=== PATIENT | male | born 1985 | race Caucasian/White ===

== ENCOUNTER 2017-02-17 23:30 | Inpatient (IN) | payer BC, OTHER ==
[~2017-02-17] VITALS: Ht 177.8 cm; Wt 72.6 kg
--- NOTE | 2017-02-17 23:15 | NUR ---
Pre-admission assessment Patient is a 31-year old, male, seen at intake, AAOx4, no SOB and with slight anxiety noted at this time. Discussed with patient admission policies of the unit. Patient is coherent and able to respond to questions appropriately. Patient verbalized the he left [facility] on 02/16/2017 and relapsed immediately on the same day. Pt is ambulatory with steady gait. Pt reports that he left [facility] on 02/16/2017 and that for the past 2 days, patient has been using these substances: 1) Heroin 3 gms daily via oral inhalation. 2) Xanax 6 mg PO. Intermittent binging. 3) Methamphetamine 0.5 gm via snort. Patient denies using other substances besides the one mentioned. Vital signs taken and as follows: JB=358/92, P=84, O2 sat on RA=99%, RR=20, T=98.3 Pt verbalized instructions and teachings regarding disposal of narcotic and other controlled home meds, unit protocols such as taking of vital signs Q4H and handling and disposal of contraband.
[2017-02-18] MEDS ORDERED: LORAZEPAM 2 MG/1 ML VIAL IM PRN
[2017-02-18] MEDS ORDERED: ONDANSETRON 4 MG/2 ML VIAL IM PRN
[2017-02-18] MEDS ORDERED: LOPERAMIDE HCL 2 MG CAPSULE PO PRN ×2
[2017-02-18] MEDS ORDERED: ACETAMINOPHEN 325 MG TABLET PO PRN
[2017-02-18] MEDS ORDERED: MAG HYDROX/AL HYDROX/SIMETH 30 ML LIQUID UDC PO PRN
[2017-02-18] MEDS ORDERED: IBUPROFEN 400 MG TABLET PO PRN
[2017-02-18] MEDS ORDERED: ONDANSETRON ODT 4 MG TAB.RAPDIS SL PRN
[2017-02-18] MEDS ORDERED: DICYCLOMINE HCL 20 MG TABLET PO PRN
[2017-02-18] MEDS ORDERED: HYDROXYZINE PAMOATE 25 MG CAPSULE PO PRN
[2017-02-18] MEDS ORDERED: MIRALAX 17 GM POWD.PACK PO PRN
[2017-02-18] MEDS ORDERED: diphenhydrAMINE 50 MG CAPSULE PO PRN
[2017-02-18] MEDS ORDERED: CLONIDINE HCL 0.1 MG TABLET PO PRN
[2017-02-18] MEDS ORDERED: LORAZEPAM 1 MG TABLET PO PRN ×2
[2017-02-18] MEDS ORDERED: METHOCARBAMOL 750 MG TABLET PO PRN
[2017-02-18] MEDS ORDERED: MAGNESIUM HYDROXIDE 30 ML LIQUID UDC PO PRN
[2017-02-18 00:28] LABS: *AMPHETAMINE, URINE POSITIVE (NEGATIVE); *BARBITURATE, URINE NEGATIVE (NEGATIVE); *CANNABINOID, URINE NEGATIVE (NEGATIVE); *COCCAINE, URINE NEGATIVE (NEGATIVE); *OPIATE, URINE POSITIVE (NEGATIVE); *PHENCYCLIDINE SCREEN,URINE NEGATIVE (NEGATIVE)
[2017-02-18 00:30] VITALS: BP 144/95
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
--- NOTE | 2017-02-18 03:11 | NUR ---
RN note PRN Motrin Pt c/o back pain=510. Administered Motrin 400 mg PO. Will reassess.
[2017-02-18] MEDS ORDERED: IBUPROFEN 400 MG TABLET ONE (03:20)
[2017-02-18 04:00] VITALS: BP 133/84
--- NOTE | 2017-02-18 04:11 | NUR ---
RN note reassess Pt asleep on bed, no facial grimacing nor SOB noted. Motrin effective.
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
--- NOTE | 2017-02-18 07:15 | NUR ---
START OF SHIFT NOTE: RECEIVED PT FROM HAND LAMINATOR NURSE, PT IS IN STABLE CONDITION AT THIS TIME NO S/S OF PAIN OR DISCOMFORT. PT IS ADMITTED TO [facility] FOR METH/OPIATE/BENZO WITHDRAWAL/DEPENDENCE. PT RE-LAPSED FOR 1 -2 DAYS AND IS AWAITING FOR PLACEMENT. WILL MONITOR PT FOR ANY CHANGES.
[2017-02-18] MEDS ORDERED: ARIP5TAB20 PO (07:26)
[2017-02-18] MEDS ORDERED: FLUO20CA36 PO (07:26)
[2017-02-18] MEDS ORDERED: EMTR1TAB6 PO (07:26)
[2017-02-18] MEDS ORDERED: DOLU50TA PO (07:26)
[2017-02-18] MEDS ORDERED: VENL75CA62 PO (07:26)
[2017-02-18 09:00] VITALS: BP 129/86
[2017-02-18] MEDS ORDERED: TUBERCULIN,PURIF.PROT.DERIV. 5 TU/0.1 ML TEST ID ONE (09:00)
[2017-02-18] MEDS: MULTIVITAMINS,THERAPEUTIC TABLET PO SCH (09:00)
[2017-02-18 10:07] LABS: BASOPHILS % (AUTO) 0.2 % (0.0-2.0); EOSINOPHILS % (AUTO) 0.2 % (0.0-7.0); HEMATOCRIT 47.6 % (40-50); HEMOGLOBIN 16.7 G/DL (14.0-18.0); LYMPHOCYTES # (AUTO) 1.8 K/UL (0.8-4.8); LYMPHOCYTES % (AUTO) 19.6 % (20.5-51.5); MEAN CORPUSCULAR HGB CONC 35 g/dL (32.0-37.0); MEAN CORPUSCULAR VOLUME 88.2 FL (82.0-92.0); MONOCYTES # (AUTO) 0.5 K/UL (0.1-1.30); MONOCYTES % (AUTO) 5.2 % (0.0-11.0); NEUTROPHILS # (AUTO) 6.8 K/UL (1.8-8.9); NEUTROPHILS % (AUTO) 74.8 % (38.5-71.5); PLATELET COUNT (AUTO) 221 K/UL (150-450); RED BLOOD CELL COUNT(AUTO) 5.39 MIL/UL (4.7-6.1); WHITE BLOOD COUNT (AUTO) 9.1 K/UL (4.0-11.2)
[2017-02-18 10:14] LABS: ALANINE AMINOTRANSFERASE 27 U/L (16-63); ALKALINE PHOSPHATASE 116 U/L (50-136); AMYLASE 91 U/L (25-115); ASPARTATE AMINOTRANSFERASE 26 U/L (15-37); BILIRUBIN,TOTAL 0.6 mg/dL (0.2-1.0); CARBON DIOXIDE 25 mmol/L (21-32); CHLORIDE 102 mmol/L (98-107); GLUCOSE 121 mg/dL (74-106); LIPASE 75 U/L (73-393); POTASSIUM 4.1 mmol/L (3.5-5.1); TOTAL PROTEIN, SERUM 7.9 g/dL (6.4-8.2); UREA NITROGEN, BLOOD 11 mg/dL (7-18)
[2017-02-18 10:15] LABS: ETHANOL < 3 MG/DL (0-0)
[2017-02-18 10:30] LABS: THYROID STIMULATING HORMONE 1.763 mIU/mL (0.358-3.740)
[2017-02-18] MEDS ORDERED: LORAZEPAM 1 MG TABLET PO SCH (10:45)
[2017-02-18] MEDS ORDERED: TIVICAY 50 MG PO SCH (10:45)
[2017-02-18] MEDS ORDERED: TRUVADA PO SCH (10:45)
[2017-02-18] MEDS: TRUVADA PO SCH (13:37)
[2017-02-18] MEDS: TIVICAY PO SCH (13:37)
[2017-02-18 14:40] VITALS: BP 129/86
[2017-02-18] MEDS: GABAPENTIN 300 MG CAPSULE PO SCH (15:00)
[2017-02-18 18:11] VITALS: BP 139/95
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
--- NOTE | 2017-02-18 19:15 | NUR ---
Start of Shift Notes: Report received from day shift nurse. Pt is a 31M, admitted for Opiate and Benzo dependence on 02/17/17. Pt attended H&I panel upon the start of shift. Pt is full code, on regular diet, and on fall/seizure precautions. Pt reports hx of Anxiety, Depression, ADHD, HIV +, Nose and eyelid sx, sz. Pt is currently on observation for withdrawal symptoms and is scheduled to discharge in the morning. Pt's last COWS was 3 and CIWA was 3 at 1700. Bed in lowest position. Side rails up x2. Call light functioning and within reach. All needs attended and met. Will continue to monitor.
[2017-02-18 19:20] LABS: *AMPHETAMINE, URINE POSITIVE (NEGATIVE); *BARBITURATE, URINE NEGATIVE (NEGATIVE); *CANNABINOID, URINE NEGATIVE (NEGATIVE); *COCCAINE, URINE NEGATIVE (NEGATIVE); *OPIATE, URINE POSITIVE (NEGATIVE); *PHENCYCLIDINE SCREEN,URINE NEGATIVE (NEGATIVE)
[2017-02-18 20:00] VITALS: BP 124/78
[2017-02-18] MEDS ORDERED: GABAPENTIN 300 MG CAPSULE PO SCH (21:00)
--- NOTE | 2017-02-19 07:16 | NUR ---
End of Shift Notes: Pt is 31M, admitted for Opiate and Benzo dependence on 02/17/17. Pt is full code, on regular diet, and on fall/seizure precautions. Pt noted with NKA. Pt is on observation for withdrawal symptoms and is scheduled for discharge in the afternoon. Pt slept for 6 hours. Respirations even and unlabored. Pt's last COWS was 2 and last CIWA was 2. No N/V noted during the shift. Fall and Sz precautions observed. Bed in lowest position. Side rails up x2. Call light functioning and within reach. All needs attended and met. Will endorse to day shift nurse.
--- NOTE | 2017-02-19 07:51 | NUR ---
START OF SHIFT NOTE: Report received from manager night nurse. Pt is a 31 yo male, admitted for Opiate and Benzo dependence on 02/17/17. To be discharged this AM. Pt is alert and oriented X4. Color good, skin warm and dry. Respirations even and unlabored. Resting in bed. Safety precautions observed. Call light within reach.
[2017-02-19] MEDS: MULTIVITAMINS,THERAPEUTIC TABLET PO SCH (08:04)
[2017-02-19] MEDS: TIVICAY PO SCH (08:05)
[2017-02-19] MEDS: TRUVADA PO SCH (08:05)
[2017-02-19] MEDS: GABAPENTIN 300 MG CAPSULE PO SCH (08:07)
--- NOTE | 2017-02-19 08:30 | NUR ---
VSS Discharge papers and medication bag signed.
[2017-02-19] MEDS ORDERED: LORAZEPAM 1 MG TABLET PO SCH (09:00)
[2017-02-19] MEDS ORDERED: BUPRENORPHINE HCL 2 MG TAB.SUBL SL SCH (09:00)
[2017-02-19] MEDS ORDERED: FLUOXETINE HCL 20 MG CAPSULE PO SCH (09:00)
--- NOTE | 2017-02-19 09:31 | NUR ---
Pt discharged with all valuables, belongings and medications in stable condition. Pt denies SI/HI. To [facility] via [employer] private car.
[2017-02-19 14:08] LABS: HEPATITIS B SURFACE AG Negative (Negative)
[2017-02-20] MEDS ORDERED: BUPRENORPHINE HCL 2 MG TAB.SUBL SL SCH ×2 (09:00→15:00)
[2017-02-20] MEDS ORDERED: LORAZEPAM 1 MG TABLET PO SCH (09:00)
[2017-02-21] MEDS ORDERED: BUPRENORPHINE HCL 2 MG TAB.SUBL SL SCH (09:00)
[2017-02-21] MEDS ORDERED: LORAZEPAM 1 MG TABLET PO SCH (09:00)
[2017-02-22] MEDS ORDERED: BUPRENORPHINE HCL 2 MG TAB.SUBL SL SCH (09:00)
[2017-02-22] MEDS ORDERED: LORAZEPAM 1 MG TABLET PO SCH (09:00)
== END 2017-02-19 09:31 | disposition other institution (70) | DRG 895 ==
LOC: SRC 23:30
PROVIDERS: ADMIT Internal Medicine; ATTEND Internal Medicine
PROC: HZ2ZZZZ Detoxification Services for Substance Abuse Treatment (ICD-10-PCS; principal; 2017-02-17)
PROC: HZ41ZZZ Group Counseling for Substance Abuse Treatment, Behavioral (ICD-10-PCS; 2017-02-18)
DX: F15.120 Other stimulant abuse with intoxication, uncomplicated (principal); F13.10 Sedative, hypnotic or anxiolytic abuse, uncomplicated; F41.9 Anxiety disorder, unspecified; F32.9 Major depressive disorder, single episode, unspecified; Z79.899 Other long term (current) drug therapy; F17.210 Nicotine dependence, cigarettes, uncomplicated
CPT/HCPCS: 36415; 70030-TC; 71010; 80307; 80324; 80346; 80361; 83690; 83735; 84443; 85025; 86592; 86705; 86803; 87340; 87806; A4663; G0480